=== PATIENT | male | born 1945 | race Caucasian/White ===

== ENCOUNTER → 2017-11-30 | Day surgery (SDC) | payer OTHER, MEDICARE ==
--- NOTE | 2017-11-29 15:25 | History & Physical Pre-Op ---
General Information and HPI History of Present Illness: Patient presents for evaluation of bilateral inguinal hernias. He had open left inguinal hernia repair performed 15 years ago that recurred about 5 years ago. he also noted new right inguinal hernia around the same time as the recurrence. Neither causes pain, n/v or change to bowel function. Allergies/Medications Allergies: Coded Allergies: No Known Allergies (11/28/17) Home Med list Allopurinol 300 MG TABLET 1 TAB PO DAILY unk (Reported) Bisacodyl (Dulcolax) 5 MG TABLET.DR 1 TAB PO DAILY unk (Reported) Diltiazem HCl (Diltiazem 24HR ER) 180 MG CAP.ER.24H 1 CAP PO DAILY unk ( Reported) Magnesium Oxide 400 MG TABLET 1 TAB PO DAILY unk (Reported) Rivaroxaban (Xarelto) 20 MG TABLET 1 TAB PO DAILY unk (Reported) with food Valsartan (Diovan) 80 MG TABLET 1 TAB PO DAILY ink (Reported) Past History Medical History Cardiovascular: AFIB, hypertension Musculoskeletal: gout Surgical History Pertinent Surgical History: hernia repair-inguinal (open left 2002) Past Family/Social History Psychosocial History Smoking Status: Never Smoked ETOH Use: denies use Review of Systems Review of Systems: Patient reports no fatigue, no fever, no night sweats, no significant weight gain, no significant weight loss, and no exercise intolerance. He reports no abnormal moles, no jaundice, no hives, no eczema, and no rashes. He reports no swollen glands and no neck stiffness. He reports no cough, no wheezing, no shortness of breath, and no coughing up blood. He reports no chest pain, no arm pain on exertion, no shortness of breath when walking, no shortness of breath when lying down, no palpitations, and no known heart murmur. He reports normal appetite, no abdominal pain, no vomiting, no vomiting blood, no bloating, no diarrhea, no belching, no constipation, no regurgitation, and no rectal bleeding. He reports no incontinence, no difficulty urinating, no hematuria, and no increased frequency. He reports no muscle aches, no muscle weakness, no arthralgias/joint pain, and no back pain. Exam & Diagnostic Data Physical Exam: Patient is a 72-year-old male. Constitutional: General Appearance: healthy-appearing, well-nourished, and well- developed. Level of Distress: no acute distress. Ambulation: ambulating normally. Head: Head: normocephalic and atraumatic. Cardiovascular: Heart Auscultation: normal S1 and S2; no murmurs, rubs, or gallops; and irregularly irregular. Lungs: Respiratory effort: no dyspnea. Percussion: no dullness, flatness, or hyperresonance. Auscultation: no wheezing, rales/crackles, or rhonchi and breath sounds normal, good air movement, and clear to auscultation. Back: Thoracolumbar Appearance: normal curvature. Abdomen: Inspection and Palpation: no tenderness, guarding, masses, rebound tenderness, or CVA tenderness and soft and non-distended. Bowel Sounds: normal. Liver: non-tender and no hepatomegaly. Spleen: non-tender and no splenomegaly. Hernia: inguinal (bilateral reducible bowel containing hernias. Healed left inguinal scar). Skin: Inspection and palpation: no rash, lesions, ulcer, induration, nodules, jaundice, or abnormal nevi and good turgor. Musculoskeletal:: Extremities: no cyanosis, varicosities, or palpable cord and edema. Motor Strength and Tone: normal tone and motor strength. Joints, Bones, and Muscles: no contractures, malalignment, tenderness, or bony abnormalities and normal movement of all extremities. Assessment/Plan Assessment/Plan: 1. Unilateral recurrent inguinal hernia - left side after anterior repair with mesh K40.91: Unilateral inguinal hernia, without obstruction or gangrene, recurrent 2. Right inguinal hernia - Recommend laparoscopic bilateral inguinal hernia repair with mesh. K40.90: Unilateral inguinal hernia, without obstruction or gangrene, not specified as recurrent INGUINAL HERNIA: CARE INSTRUCTIONS Patient Instructions Preop Cards eval. Stop xarelto 3 days prior to surgery. Can resume 48 hours after surgery Discussion Notes Discussed laparoscopic preperitoneal hernia repair with mesh, the need for general anesthesia to perform it and the outpatient nature of surgery. Discussed the outcomes of surgery including 3-5% recurrence rate, 1% infection and bleeding risk. Discussed the permanent nature of mesh for repair and need for removal if infection occurs. Discussed the small risk of testicular vessel injury and vas deferens injury (males). As Ranked By This Provider Problem List: 1. Inguinal hernia recurrent unilateral 2. Inguinal hernia unilateral, non-recurrent
[~2017-11-30] VITALS: Ht 190.5 cm; Wt 97.5 kg
[~2017-11-30] MED LIST: ALLOPURINOL300 M1 PO; DILTIAZEM 24HR180 MG PO; DIOVAN80 M1 PO; DULCOLAX5 M1 PO; FISH OIL 1,0001 EAC4 PO; MAGNESIUM OXID400 M1 PO; MULTIVITAMINS1 EAC9 PO; XARELTO20 M2 PO
--- NOTE | 2017-11-30 10:44 | Operative Report ---
Operative/Inv Procedure Report Surgery Date: 11/30/17 Name of Procedure: Laparoscopic recurrent Left and primary right inguinal hernia repair. Pre-Operative Diagnosis: Recurrent left inguinal hernia Right inguinal hernia Post-Operative Diagnosis: Same same Estimated Blood Loss: scant Surgeon/Senior Property Accountant: Cruz BACH,oLrenzo Peralta/Laurie PARRA Anesthesia: general endotracheal tube Implants: Parietex mesh Operative Indication: 72-year-old male with long-standing bilateral inguinal hernias. Left side is recurrent. He presents for laparoscopic repair Operative/Procedure Note Note: After consent patient is brought to the operating room laid supine. General anesthesia was obtained and the abdomen was prepped and draped. Skin was anesthetized with local anesthesia and a transverse infraumbilical incision made sharply. We identified the rectus fascia and incised transversely. Stay sutures were placed. Rectus muscle was retracted laterally and a dissecting balloon placed posterior to it. It was inflated under direct vision the camera and replaced with a blunt Rajan port. Gas was instilled. 2, 5 mm ports were placed in the infraumbilical midline after local anesthesia was instilled and under direct vision and camera. Began our dissection at the pubis and delineated the symphysis. Richie's ligament was identified and cleared. There is a large, left-sided direct recurrent hernia tissues were dissected free from the direct space and reflected inferiorly. There was a small obturator hernia which was reduced. Then dissected laterally and developed the iliopubic tract. The cord structures were circumferentially dissected. There is no indirect defect. Once the dissection was completed a left -sided piece of Parietex mesh was placed in the cavity. It was placed around the cord structures re-create the internal ring and cover the femoral and direct spaces as well. The mesh was then tacked medially with the absorbable tackers. We then turned attention to the right side. There was a large direct hernia which was again dissected free and reflected inferiorly. There is no indirect hernia. Right-sided mesh was placed in a similar fashion but not tacked. Gas was allowed to escape on maintaining proper orientation of the mesh. The fascia was closed with 0 Vicryl suture. Skin incisions closed with 4-0 Vicryl. Steri-Strips and sterile dressing applied. Sponge and needle counts are correct. CC: Estefany BACH,Bhanu Menard; Toan BACH,Josue Pickett
== END ==
LOC: STS 01:05
DX: K40.91 Unilateral inguinal hernia, without obstruction or gangrene, recurrent (principal); K40.90 Unilateral inguinal hernia, without obstruction or gangrene, not specified as recurrent; I48.91 Unspecified atrial fibrillation; Z79.01 Long term (current) use of anticoagulants; I10 Essential (primary) hypertension; M10.9 Gout, unspecified; J45.909 Unspecified asthma, uncomplicated
CPT/HCPCS: 36415; C1781; C9290; J0131; J0690; J2250; J3490